=== PATIENT | female | born 1985 ===

== ENCOUNTER 2018-04-30 17:28 | Emergency (ER) | payer BC ==
--- NOTE | 2018-04-30 18:07 | EDM.PDOC ---
ED HPI GENERAL MEDICAL PROBLEM - General Chief Complaint: Diabetic Complaint Stated Complaint: BLOOD CLUCOSE TEST DONE Time Seen by Provider: 04/30/18 18:07 Source of Information: Reports: Patient - History of Present Illness INITIAL COMMENTS - FREE TEXT/NARRATIVE: HISTORY AND PHYSICAL: History of present illness: [Patient presents with complaint of checking a glucose test, her psychologist had requested a repeat check his Aricept lab performed last Sunday her glucose level was 58 at that time He was wanting a recheck of lab as she has been having some symptoms of hot cold sweats she is on multiple medications and these can be side effects of the medication she has had recent change from high doses of Seroquel dropping this medication without a taper and changing to latuda At current she is somewhat unhappy and a little edgy but seems frustrated, she also mentions that she has generalized weakness while climbing stairs and shortness of breath she is a smoker she is out of shape BMI is 38 otherwise she is in no acute distress no fever nausea vomiting chills sweats no chest pain dizziness or palpitation no bowel or urine symptoms ] Review of systems: As per history of present illness and below otherwise all systems reviewed and negative. Past medical history: As per history of present illness and as reviewed below otherwise noncontributory. Surgical history: As per history of present illness and as reviewed below otherwise noncontributory. Social history: No reported history of drug or alcohol abuse. Family history: As per history of present illness and as reviewed below otherwise noncontributory. Physical exam: HEENT: Atraumatic, normocephalic, pupils reactive, negative for conjunctival pallor or scleral icterus, mucous membranes moist, throat clear, neck supple, nontender, trachea midline. Lungs: Clear to auscultation, breath sounds equal bilaterally, chest nontender. Heart: S1S2, regular, negative for clicks, rubs, or JVD. Abdomen: Soft, nondistended, nontender. Negative for masses or hepatosplenomegaly. Negative for costovertebral tenderness. Pelvis: Stable nontender. Genitourinary: Deferred. Rectal: Deferred. Extremities: Atraumatic, negative for cords or calf pain. Neurovascular unremarkable. Neuro: Awake, alert, oriented. Cranial nerves II through XII unremarkable. Cerebellum unremarkable. Motor and sensory unremarkable throughout. Exam nonfocal. Diagnostics: [UA, hCG is on file from yesterday and negative Chest 2 views Accu-Chek 113 Patient declines further testing as she had full labs including thyroid performed last Sunday ] Therapeutics: [Follow-up with psychiatry and primary care consideration of medication adjustments Levaquin 500 No. 10 HFA Impression: Bronchitis Small hematuria with leukocyte esterase positive culture pending Definitive disposition and diagnosis as appropriate pending reevaluation and review of above. head Pain Score (Numeric/FACES): 5 - Related Data Allergies Allergy/AdvReac Type Severity Reaction Status Date / Time cephalexin [From Keflex] Allergy Rash Verified 04/30/18 17:37 Home Meds: Home Meds Levothyroxine [Sythroid] 100 mcg PO DAILY 04/30/18 [History] Lisdexamfetamine Dimesylate [Vyvanse] 50 mg PO DAILY 04/30/18 [History] Lurasidone HCl [Latuda] 60 mg PO BEDTIME 04/30/18 [History] OXcarbazepine [Oxtellar Xr] 300 mg PO BID 04/30/18 [History] Zolpidem Tartrate [Ambien] 5 mg PO BEDTIME 04/30/18 [History] Past Medical History [employer] History: Reports: Psychiatric History: Reports: Bipolar Endocrine/Metabolic History: Reports: Hypoparathyroidism - Infectious Disease History Infectious Disease History: Reports: Chicken Pox Social & Family History - Family History Family Medical History: Noncontributory - Tobacco Use Smoking Status *Q: Current Every Day Smoker Years of Tobacco use: 10 Packs/Tins Daily: 0.5 - Recreational Drug Use Recreational Drug Use: No ED ROS GENERAL - Review of Systems Review Of Systems: See Below ED EXAM GENERAL NO PERIP PULSE - Physical Exam Exam: See Below Course - Vital Signs Last Recorded V/S: Last Vital Signs Temp 97.6 F 04/30/18 17:40 Pulse 84 04/30/18 17:40 Resp 20 04/30/18 17:40 BP 141/83 H 04/30/18 17:40 Pulse Ox 100 04/30/18 17:40 - Orders/Labs/Meds Orders: Active Orders 24 hr Category Date Time Status RT Aerosol Therapy [RC] ASDIRECTED Care 04/30/18 18:35 Active Chest 2V [CR] Stat Exams 04/30/18 18:07 Taken CULTURE URINE [RM] Stat Lab 04/30/18 18:40 Ordered Labs: Laboratory Tests 04/30/18 04/30/18 Range/Units 17:46 18:13 POC Glucose 113 H (60-110) mg/dL Urine Color YELLOW Urine Appearance CLEAR Urine pH 5.5 (5.0-8.0) Ur Specific [place] 1.025 (1.001-1.035) Urine Protein NEGATIVE (NEGATIVE) mg/dL Urine Glucose (UA) NEGATIVE (NEGATIVE) mg/dL Urine Ketones NEGATIVE (NEGATIVE) mg/dL Urine Occult Blood TRACE-INTACT (NEGATIVE) Urine Nitrite NEGATIVE (NEGATIVE) Urine Bilirubin NEGATIVE (NEGATIVE) Urine Urobilinogen 0.2 (<2.0) EU/dL Ur Leukocyte Esterase SMALL (NEGATIVE) Urine RBC 0-2 (0-2/HPF) Urine WBC 2-3 (0-5/HPF) Ur Epithelial Cells OCCASIONAL (NONE-FEW) Amorphous Sediment FEW (NEGATIVE) Urine Bacteria FEW (NEGATIVE) Urine Mucus FEW (NONE-MOD) Meds: Medications Discontinued Medications Generic Name Dose Route Start Last Admin Trade Name Freq PRN Reason Stop Dose Admin Albuterol/Ipratropium 3 ml 04/30/18 18:35 Duoneb 3.0-0.5 Mg/3 Ml NEB 04/30/18 18:36 ONETIME ONE Departure - Departure Time of Disposition: 18:43 Disposition: Home, Self-Care 01 Condition: Good Clinical Impression: Bronchitis, Hematuria - Discharge Information Referrals: PCP,None [Primary Care Provider] - Forms: ED Department Discharge Additional Instructions: The following information is given to patients seen in the emergency department who are being discharged to home. This information is to outline your options for follow-up care. We provide all patients seen in our emergency department with a follow-up referral. The need for follow-up, as well as the timing and circumstances, are variable depending upon the specifics of your emergency department visit. If you don't have a primary care physician on staff, we will provide you with a referral. We always advise you to contact your personal physician following an emergency department visit to inform them of the circumstance of the visit and for follow-up with them and/or the need for any referrals to a consulting specialist. The emergency department will also refer you to a specialist when appropriate. This referral assures that you have the opportunity for follow-up care with a specialist. All of these measure are taken in an effort to provide you with optimal care, which includes your follow-up. Under all circumstances we always encourage you to contact your private physician who remains a resource for coordinating your care. When calling for follow-up care, please make the office aware that this follow-up is from your recent emergency room visit. If for any reason you are refused follow-up, please contact the [facility] emergency department at and asked to speak to the emergency department charge nurse. - My Orders Last 24 Hours: My Active Orders 04/30/18 18:07 Chest 2V [CR] Stat 04/30/18 18:35 RT Aerosol Therapy [RC] ASDIRECTED 04/30/18 18:40 CULTURE URINE [RM] Stat - Assessment/Plan Last 24 Hours: My Active Orders 04/30/18 18:07 Chest 2V [CR] Stat 04/30/18 18:35 RT Aerosol Therapy [RC] ASDIRECTED 04/30/18 18:40 CULTURE URINE [RM] Stat
[2018-04-30] MEDS ORDERED: Albuterol/Ipratropium 3.0-0.5 MG/3 ML Neb Soln NEB ONE (18:35)
--- NOTE | 2018-05-01 09:18 | CR ---
EXAM DATE: 04/30/18 PATIENT'S AGE: 32 Patient: FLOYD TRINIDAD Facility: [place], [place] Site . Site : 1985 Study: XRay Chest [id number]/18/2018 6:29:31 PM Ordering Physician: Brannon Mejia Final Report: Indication: Came in for low blood sugar. Technique: PA and lateral views the chest were obtained. Comparison: None Findings: The heart is normal in size. The lungs are clear. No infiltrate, pleural effusion, or pneumothorax is identified. Impression: No acute cardiopulmonary process. Dictated by Fany Dorantes MD @ Apr 30 2018 6:34PM (Electronic Signature) Report Signed by Proxy. SHAUN
== END 2018-04-30 19:10 | disposition home or self-care (01) ==
LOC: MW.ED 17:28
DX: J40 Bronchitis, not specified as acute or chronic (principal); R31.9 Hematuria, unspecified; E20.9 Hypoparathyroidism, unspecified; F17.210 Nicotine dependence, cigarettes, uncomplicated; Z88.1 Allergy status to other antibiotic agents; Z79.899 Other long term (current) drug therapy
CPT/HCPCS: 71046; 71046-26; 81001; 82962; 87086; 94640; 99283; 99284-25; J7620-GY